=== PATIENT | male | born 1970 | race Caucasian/White ===

== ENCOUNTER 2017-12-01 07:59 | Inpatient (IN) | payer SELFPAY ==
[~2017-12-01] VITALS: Ht 182.9 cm; Wt 64.9 kg
[~2017-12-01 07:59] MED LIST: AMOXICILLIN500 M1 PO; AUGMENTIN875 MG PO; MOTRIN800 MG PO; NORCO 7.5/321 TABLET PO; PROVENTIL HFA6.7 GM IH; TESSALON PERLE100 MG PO; ULTRAM50 MG PO; ZITHROMAX Z-PA250 MG PO
[2017-12-01 08:21] LABS: HEMATOCRIT 44.4 % (38.0-50.0); HEMOGLOBIN 15.5 G/DL (12.5-16.6); MCHC 34.9 G/DL (30.0-36.0); MCV 88.8 FL (86-99); PLATELET COUNT 506 K/uL (156-360); RBC DIS.WIDTH-CV 12.3 % (11.8-14.6); RBC DIS.WIDTH-SD 39.8 % (39-53); WHITE BLOOD COUNT 28.5 K/uL (4.1-10.2)
[2017-12-01 08:32] LABS: CHLORIDE 103 mEq/L (99-109); POTASSIUM 3.6 mEq/L (3.7-5.4); SODIUM 139 mEq/L (136-147)
[2017-12-01 08:34] LABS: GLUCOSE 122 mg/dL (70-99)
[2017-12-01 08:38] LABS: CREATININE 1.2 mg/dL (0.6-1.3); GFR ESTIMATE (CALCULATED) > 59 mL/min/ (58.99-99999)
[2017-12-01 08:39] LABS: UREA NITROGEN (BUN) 14 mg/dL (9-23)
[2017-12-01 11:06] LABS: C DIFF TOXIN NEGATIVE (NEGATIVE)
[2017-12-01] MEDS ORDERED: MUCINEX FAST-M1 EAC2 PO (11:55)
[2017-12-01] MEDS ORDERED: THERAFLU FLU &1 EAC1 PO (11:56)
[2017-12-01 12:45] LABS: APPEARANCE CLEAR ((CLEAR)); BILIRUBIN NEGATIVE; BLOOD NEGATIVE; COLOR YELLOW ((YELLOW)); GLUCOSE (STRIP) NEGATIVE; KETONES 80; LEUKOCYTES NEGATIVE; NITRITE NEGATIVE; PROTEIN (STRIP) 30; SPECIFIC GRAVITY 1.028 (1.000-1.030); UCUL ADDED? NO
[2017-12-01 13:01] VITALS: BP 124/71
[2017-12-01 16:05] LABS: MONOSPOT (MONONUCLEOSIS SEROL) NEGATIVE
[2017-12-01 23:38] VITALS: BP 123/73
[2017-12-02 06:50] LABS: ALBUMIN 3.4 G/DL (3.2-4.8); ALKALINE PHOSPHATASE 100 IU/L (3-129); ALT (GPT) 17 IU/L (3-49); AST (GOT) 19 IU/L (2-34); CHLORIDE 103 MEQ/L (99-109); CREATININE 0.8 MG/DL (0.6-1.3); GFR ESTIMATE (CALCULATED) > 59 mL/min/ (58.99-99999); GLUCOSE 95 mg/dL (70-99); SODIUM 138 MEQ/L (136-147); TOTAL BILIRUBIN 0.4 MG/DL (0.0-1.0); TOTAL PROTEIN 6.2 G/DL (6.4-8.3); UREA NITROGEN (BUN) 8 mg/dL (9-23)
[2017-12-02 06:57] LABS: POTASSIUM 4.4 MEQ/L (3.7-5.4)
[2017-12-02 06:59] LABS: HEMATOCRIT 39.3 % (38.0-50.0); MCH 30.8 PG (29.0-34.0); MCHC 33.6 G/DL (30.0-36.0); MCV 91.6 FL (86-99); PLATELET COUNT 447 K/uL (156-360); RBC DIS.WIDTH-CV 12.4 % (11.8-14.6); RBC DIS.WIDTH-SD 41.6 % (39-53); RED BLOOD COUNT 4.29 M/uL (4.00-5.50); WHITE BLOOD COUNT 18.4 K/uL (4.1-10.2)
[2017-12-02 07:05] VITALS: BP 117/57
[2017-12-02 07:08] LABS: HEMOGLOBIN 13.2 G/DL (12.5-16.6)
[2017-12-02 13:39] LABS: LYME DISEASE SEROLOGY SCREEN NEGATIVE (NEGATIVE)
[2017-12-02 15:58] VITALS: BP 102/57
[2017-12-02 23:50] VITALS: BP 108/60
[2017-12-03 06:01] LABS: HEMATOCRIT 37.3 % (38.0-50.0); HEMOGLOBIN 12.8 G/DL (12.5-16.6); MCHC 34.3 G/DL (30.0-36.0); MCV 90.3 FL (86-99); PLATELET COUNT 420 K/uL (156-360); RBC DIS.WIDTH-CV 12.3 % (11.8-14.6); RBC DIS.WIDTH-SD 40.8 % (39-53); RED BLOOD COUNT 4.13 M/uL (4.00-5.50); WHITE BLOOD COUNT 13.7 K/uL (4.1-10.2)
[2017-12-03 07:40] VITALS: BP 114/59
[2017-12-03 16:06] VITALS: BP 110/59
[2017-12-03 23:51] VITALS: BP 109/65
[2017-12-04 05:50] LABS: HEMATOCRIT 35.5 % (38.0-50.0); HEMOGLOBIN 12.2 G/DL (12.5-16.6); MCH 30.7 PG (29.0-34.0); MCHC 34.4 G/DL (30.0-36.0); MCV 89.4 FL (86-99); PLATELET COUNT 451 K/uL (156-360); RBC DIS.WIDTH-CV 12.4 % (11.8-14.6); RBC DIS.WIDTH-SD 40.4 % (39-53); RED BLOOD COUNT 3.97 M/uL (4.00-5.50); WHITE BLOOD COUNT 10.6 K/uL (4.1-10.2)
[2017-12-04 07:26] VITALS: BP 125/69
[2017-12-04] MEDS ORDERED: METRONIDAZOLE500 MG PO (11:27)
[2017-12-04] MEDS ORDERED: AUGMENTIN875 MG PO (11:28)
== END 2017-12-04 12:18 | disposition home or self-care (01) | DRG 816 ==
LOC: EME 07:59 → 5SOUTH 11:34 → EDOF 11:34 → ENRESERV 11:35 → 5SOUTH 12:45
PROVIDERS: Emergency Medicine; Hospitalist; Internal Medicine; Internal Medicine Infectious Disease
DX: D72.829 Elevated white blood cell count, unspecified (principal); J06.9 Acute upper respiratory infection, unspecified; R19.7 Diarrhea, unspecified; R53.1 Weakness; R11.2 Nausea with vomiting, unspecified; M79.604 Pain in right leg; M79.605 Pain in left leg; F17.210 Nicotine dependence, cigarettes, uncomplicated
CPT/HCPCS: 71046; 80048; 80053; 81003; 83605; 85027; 86308; 86618; 87040; 87493; 87506; 87651 90; 99281; 99285; J0295; J1644; J7030; J7050